=== PATIENT | female | born 1940 | race Caucasian/White ===

== ENCOUNTER 2017-07-06 09:32 | Day surgery (SDC) | payer MEDICARE, BC ==
[2017-07-06] VITALS (11 sets, daily range): BP systolic 105–141; BP diastolic 62–90
[~2017-07-06] VITALS: Ht 162.6 cm; Wt 90.4 kg
[2017-07-06] MEDS ORDERED: LORazepam 0.5 MG tablet PO PRN (10:15)
[2017-07-06] MEDS ORDERED: nitroGLYCERIN 0.4mg SUBLingual tab SL PRN (10:15)
[2017-07-06] MEDS ORDERED: diphenhydrAMINE 25mg capsule PO PRN (10:15)
[2017-07-06] MEDS ORDERED: normal saline 1000ml 1,000 ML IV SCH (10:15)
[2017-07-06] MEDS ORDERED: RIVA20TA PO (11:22)
[2017-07-06] MEDS ORDERED: ATOR40TA71 PO (11:26)
[2017-07-06] MEDS ORDERED: VITA600C3 PO (11:29)
[2017-07-06] MEDS ORDERED: KRIL1CAP6 PO (11:30)
[2017-07-06] MEDS ORDERED: VITA150T PO (11:31)
[2017-07-06] MEDS ORDERED: ASCO500C15 PO (11:31)
[2017-07-06] MEDS ORDERED: BEETROOT PO (11:32)
[2017-07-06] MEDS ORDERED: METO-539 PO (11:33)
[2017-07-06] MEDS ORDERED: LEVO50TA8 PO (11:40)
[2017-07-06] MEDS ORDERED: fentaNYL/PF 50MCG/1 ML 2ML syringe ONE (11:58)
[2017-07-06] MEDS ORDERED: iohexol 350 MG/ML 50ML vial IV ONE ×2 (11:59→12:47)
[2017-07-06] MEDS ORDERED: midazolam 2 mg/2 ml injection ONE (11:59)
[2017-07-06] MEDS ORDERED: iohexol 350MG/ML 100ml bottle IV ONE (11:59)
[2017-07-06] MEDS ORDERED: LIDOcaine 1%/PF (10mg/ml) 5ml vial ONE (12:03)
[2017-07-06] MEDS ORDERED: ondansetron/PF 4mg/2ml inj IV PRN (13:55)
[2017-07-06] MEDS ORDERED: OXAZEpam 15mg capsule PO PRN (13:55)
[2017-07-06] MEDS ORDERED: proCHLORperazine 10 MG/2 ml inj IV PRN (13:55)
[2017-07-06] MEDS ORDERED: normal saline 1000ml 1,000 ML IV ONE (13:55)
== END 2017-07-06 19:00 | disposition home or self-care (01) ==
LOC: SSTAY O 09:32
PROVIDERS: ATTEND Internal Medicine Cardiovascular Disease
DX: I25.10 Atherosclerotic heart disease of native coronary artery without angina pectoris (principal); I48.2 Chronic atrial fibrillation; E78.5 Hyperlipidemia, unspecified; Z86.73 Personal history of transient ischemic attack (TIA), and cerebral infarction without residual deficits; Z88.6 Allergy status to analgesic agent; Z98.890 Other specified postprocedural states; Z79.899 Other long term (current) drug therapy
CPT/HCPCS: 71046; 93458; 99152; 99153; A6257; C1769; J1644; J2001; J2250; J3010; J7030; Q0163; Q9967; A4620

== ENCOUNTER 2022-10-05 14:54 | Emergency (ER) | payer MEDICARE, BC ==
[~2022-10-05] VITALS: Ht 162.6 cm; Wt 100.0 kg
[~2022-10-05 14:54] MED LIST: ASCO500C18 PO; ATOR40TA71 PO; BEETROOT PO; KRIL1CAP6 PO; LEVO50TA8 PO; METO-539 PO; RIVA20TA PO; VITA150T PO; VITA600C3 PO
[2022-10-05] MEDS ORDERED: aspirin 81mg tab.chew PO ONE (15:05)
--- NOTE | 2022-10-05 15:05 | NUR ---
attempt ekg, pt lvl 1 stroke, to CT first.
[2022-10-05] MEDS ORDERED: iohexol 350MG/ML 100ml bottle IV ONE (15:09)
--- NOTE | 2022-10-05 15:19 | NUR ---
Called into Bed#4 for level 1 stroke alert, she is at CT scan right now.
[2022-10-05 15:21] LABS: BASOPHILS % (AUTO) 0.4 % (0-1); EOSINOPHILS # (AUTO) 0.3 X10'3 (0-0.9); EOSINOPHILS % (AUTO) 3.3 % (0-6); HEMATOCRIT 44.2 % (35.0-45.0); HEMOGLOBIN 14.8 g/dl (12.0-16.0); LYMPHOCYTES % (AUTO) 23.7 % (21-51); MEAN CORPUSCULAR HEMOGLOBIN 32.2 PG (27.0-31.0); MEAN CORPUSCULAR HGB CONC 33.4 g/dL (33.0-36.5); MEAN CORPUSCULAR VOLUME 96.3 FL (78-98); MEAN PLATELET VOLUME 8.5 FL (7.4-10.4); MONOCYTES # (AUTO) 0.9 X10'3 (0-0.9); MONOCYTES % (AUTO) 10.6 % (2-12); NEUTROPHILS # (AUTO) 5.2 X10'3 (1.8-7.7); PLATELET COUNT 211 X10'3 (140-440); RED BLOOD COUNT 4.59 X10'6 (4.20-5.60); RED CELL DISTRIBUTION WIDTH 14.4 % (11.5-14.5); WHITE BLOOD COUNT 8.4 X10'3 (4.5-11.0)
--- NOTE | 2022-10-05 15:30 | NUR ---
She has c/o of right hand numb but the coordination is intact on exam. Per her she had a recent cataract surgey on the left eye. It does not reaact to the light as well as the right eye and the eyelid droops more than the right eye. 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 It is not definable when I check her vision and when she reads the words and identifies the pictures.
--- NOTE | 2022-10-05 15:40 | NUR ---
Verbal consent for telemedicne given.
[2022-10-05 15:42] LABS: ALANINE AMINOTRANSFERASE 22 U/L (12-78); ALBUMIN 3.6 G/DL (3.4-5.0); ALBUMIN/GLOBULIN RATIO 0.9 (1.1-1.5); ALKALINE PHOSPHATASE 61 IU/L (46-116); ANION GAP 6 (8-16); ASPARTATE AMINO TRANSFERASE 14 U/L (10-37); BILIRUBIN,TOTAL 0.3 MG/DL (0.1-1.0); BLOOD UREA NITROGEN 18 MG/DL (7-18); BUN/CREATININE RATIO 18.6 (10.0-20.0); CALCIUM 9.5 MG/DL (8.5-10.1); CHLORIDE 106 MMOL/L (99-107); CREATININE 0.97 MG/DL (0.40-0.90); GLUCOSE 116 MG/DL (70-104); POTASSIUM 3.8 MMOL/L (3.5-5.1); SODIUM 143 MMOL/L (135-145); TOTAL CARBON DIOXIDE 30.8 MMOL/L (24-32); TOTAL PROTEIN 7.4 G/DL (6.4-8.2); eGFR 55 ML/MIN
--- NOTE | 2022-10-05 15:45 | NUR ---
Telemedicine done by Dr. Robles and he will talk to the ER doctor to give his recommendations.
--- NOTE | 2022-10-05 16:46 | NUR ---
Spoke with MRI who states due to patient's reported bladder stimulator, she is not a candidate for MRI; Ordering provider and pt notified; Awaiting further orders
[2022-10-05 19:37] VITALS: BP 152/88
== END 2022-10-05 19:45 | disposition home or self-care (01) ==
LOC: ER 14:54
DX: M47.812 Spondylosis without myelopathy or radiculopathy, cervical region (principal); R20.0 Anesthesia of skin; R51.9 Headache, unspecified; Z88.5 Allergy status to narcotic agent
CPT/HCPCS: 36415; 70450; 70496; 70498; 71045; 72125; 80053; 84484; 85025; 86885; 86900; 86901; 93005; 99285; J3490; Q9967

== ENCOUNTER 2022-11-23 13:18 | Emergency (ER) | payer MEDICARE, BC ==
[~2022-11-23] VITALS: Ht 162.6 cm; Wt 91.0 kg
[2022-11-23] MEDS ORDERED: normal saline 1000ML IV soln IVB ONE (13:45)
[2022-11-23] MEDS ORDERED: ondansetron/PF 4mg/2ml inj IV ONE (13:45)
[2022-11-23] MEDS ORDERED: morphine 4 MG/ML inj SYRINge IV PRN (13:45)
[2022-11-23 14:57] LABS: BASOPHILS % (AUTO) 0.2 % (0-1); EOSINOPHILS % (AUTO) 0.4 % (0-6); HEMATOCRIT 47.1 % (35.0-45.0); HEMOGLOBIN 15.1 g/dl (12.0-16.0); LYMPHOCYTES # (AUTO) 2.1 X10'3 (1.1-4.8); LYMPHOCYTES % (AUTO) 18.9 % (21-51); MEAN CORPUSCULAR HEMOGLOBIN 30.9 PG (27.0-31.0); MEAN CORPUSCULAR HGB CONC 32.1 g/dL (33.0-36.5); MEAN CORPUSCULAR VOLUME 96.2 FL (78-98); MEAN PLATELET VOLUME 8.4 FL (7.4-10.4); MONOCYTES # (AUTO) 1.2 X10'3 (0-0.9); MONOCYTES % (AUTO) 10.4 % (2-12); NEUTROPHILS # (AUTO) 7.8 X10'3 (1.8-7.7); NEUTROPHILS % (AUTO) 70.1 % (42-75); PLATELET COUNT 231 X10'3 (140-440); RED BLOOD COUNT 4.89 X10'6 (4.20-5.60); RED CELL DISTRIBUTION WIDTH 14.3 % (11.5-14.5); WHITE BLOOD COUNT 11.2 X10'3 (4.5-11.0)
[2022-11-23 15:34] LABS: ALANINE AMINOTRANSFERASE 36 U/L (12-78); ALBUMIN 3.9 G/DL (3.4-5.0); ALKALINE PHOSPHATASE 53 IU/L (46-116); ANION GAP 10 (8-16); ASPARTATE AMINO TRANSFERASE 27 U/L (10-37); BILIRUBIN,TOTAL 0.6 MG/DL (0.1-1.0); BLOOD UREA NITROGEN 20 MG/DL (7-18); CALCIUM 9.2 MG/DL (8.5-10.1); CHLORIDE 106 MMOL/L (99-107); GLUCOSE 111 MG/DL (70-104); POTASSIUM 3.8 MMOL/L (3.5-5.1); SODIUM 142 MMOL/L (135-145); TOTAL CARBON DIOXIDE 26.2 MMOL/L (24-32); TOTAL PROTEIN 7.7 G/DL (6.4-8.2); eGFR 53 ML/MIN
[2022-11-23 15:40] LABS: CLARITY,URINE CLEAR (Clear); COLOR,URINE YELLOW (Yellow); GLUCOSE, URINE NEGATIVE (Neg); KETONES,URINE 15 mg/dl (Neg); LEUKOCYTE ESTERASE ,URINE NEGATIVE (Neg); NITRITES, URINE NEGATIVE (Neg); OCCULT BLOOD,URINE TRACE-INTACT (Neg); PROTEIN,URINE 30 mg/dl (Neg); UROBILINOGEN,URINE 0.2 E.U/dL (0.2-1.0)
[2022-11-23 15:42] LABS: UA COLLECTION TYPE STRAIGHT CATH
[2022-11-23 15:59] LABS: MUCUS STRANDS FEW /LPF (Neg); SQUAMOUS EPITHELIAL CELL,UR FEW /LPF (FEW)
[2022-11-23] MEDS ORDERED: cloNIDine 0.1 mg tablet PO ONE (16:00)
[2022-11-23] MEDS ORDERED: traMADol 50MG tablet PO ONE (16:00)
[2022-11-23 16:01] LABS: BACTERIA,URINE FEW /HPF (Neg); RBC,URINE 0-2 /HPF (0-2); WBC,URINE 0-4 /HPF (0-4)
[2022-11-23 16:05] LABS: CREATINE KINASE 1041 U/L (26-192)
[2022-11-23 17:44] VITALS: BP 139/88
--- NOTE | 2022-11-23 18:03 | NUR ---
PLEASE CONTACT MARCELINO TREVIÑO TO COORDINATE ASPHALT BLENDER OR ANY OTHER QUESTIONS. [phone]
== END 2022-11-23 17:59 | disposition home or self-care (01) ==
LOC: ER 13:19
DX: M25.561 Pain in right knee (principal); E78.00 Pure hypercholesterolemia, unspecified; I11.0 Hypertensive heart disease with heart failure; R26.9 Unspecified abnormalities of gait and mobility; S16.1XXA Strain of muscle, fascia and tendon at neck level, initial encounter; E03.9 Hypothyroidism, unspecified; F32.A Depression, unspecified; Z88.5 Allergy status to narcotic agent; Z88.8 Allergy status to other drugs, medicaments and biological substances; Z79.899 Other long term (current) drug therapy
CPT/HCPCS: 36415; 70450; 72125; 73564; 80053; 81001; 82550; 85025; 85610; 96361; 96374; 96375; 99285; J2270; J2405; J7030

== ENCOUNTER 2024-07-30 04:36 | Emergency (ER) | payer MEDICARE, BC ==
[~2024-07-30] VITALS: Ht 162.6 cm; Wt 75.0 kg
[2024-07-30] MEDS ORDERED: IBUP-1984 PO (05:38)
[2024-07-30] MEDS ORDERED: LIDO700A32 TOP (05:38)
[2024-07-30] MEDS: ketorolac trometh 15mg/ml vial 15 MG/ML ML IV ONE (05:52)
[2024-07-30] MEDS: LIDOcaine 5% patch TP ONE (05:52)
[2024-07-30 07:01] VITALS: BP 165/83; PULSE 68; RESP 16; TEMP 97.5; O2SAT 97
== END 2024-07-30 07:36 | disposition home or self-care (01) ==
LOC: ER 04:37
DX: M54.50 Low back pain, unspecified (principal); E78.00 Pure hypercholesterolemia, unspecified; I48.91 Unspecified atrial fibrillation; I10 Essential (primary) hypertension; E03.9 Hypothyroidism, unspecified; Z88.5 Allergy status to narcotic agent
CPT/HCPCS: 71046; 96374; 99283; J1885